=== PATIENT | male | born 1985 | race Caucasian/White ===

== ENCOUNTER 2024-05-16 20:16 | Emergency (ER) | payer OTHER ==
[~2024-05-16] VITALS: Ht 167.6 cm; Wt 70.8 kg
[2024-05-16 21:32] VITALS: BP 129/74; TEMP 98.2; O2SAT 99
[2024-05-16] MEDS ORDERED: OFLO5DRO6 RIGHTEYE (22:17)
[2024-05-16] MEDS ORDERED: IBUP-1953 PO (22:17)
== END 2024-05-16 23:39 | disposition home or self-care (01) ==
LOC: ER 20:59
DX: S05.01XA Injury of conjunctiva and corneal abrasion without foreign body, right eye, initial encounter (principal); S93.401A Sprain of unspecified ligament of right ankle, initial encounter; X58.XXXA Exposure to other specified factors, initial encounter; Y93.89 Activity, other specified; Y92.89 Other specified places as the place of occurrence of the external cause; Y99.8 Other external cause status
CPT/HCPCS: 73610-TC